=== PATIENT | female | born 2000 | race Caucasian/White ===

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

== ENCOUNTER → 2018-04-13 | Outpatient (REF) | payer OTHER | LOC: M SFHCLERA 12:23 | DX: J02.9 Acute pharyngitis, unspecified (principal) ==

== ENCOUNTER 2018-06-22 10:35 | Emergency (ER) | payer OTHER | END 2018-06-22 11:55 | disposition home or self-care (01) | LOC: M ED 10:35 | DX: S93.401A Sprain of unspecified ligament of right ankle, initial encounter (principal); X50.1XXA Overexertion from prolonged static or awkward postures, initial encounter; Y92.89 Other specified places as the place of occurrence of the external cause | CPT/HCPCS: 73610 ==

== ENCOUNTER → 2018-06-25 | Outpatient (REF) | payer OTHER ==
[2018-06-25 13:40] LABS: APPEARANCE, URINE HAZY (CLEAR); BACTERIA, URINE AUTO 1+ (NEGATIVE); BILIRUBIN, URINE AUTO NEGATIVE (NEGATIVE); BLOOD, URINE BLOOD 2+ (NEGATIVE); COLOR, URINE YELLOW (YELLOW); GLUCOSE, URINE (UA) AUTO NEGATIVE (NEGATIVE); KETONE, URINE AUTO NEGATIVE (NEGATIVE); LEUKOCYTE ESTERASE, URINE AUTO NEGATIVE (NEGATIVE); MUCUS, URINE SMALL (NEGATIVE); NITRITE, URINE AUTO NEGATIVE (NEGATIVE); PROTEIN, URINE AUTO NEGATIVE (NEGATIVE); RBC, URINE AUTO 52 /HPF (0-3); SPECIFIC GRAVITY URINE AUTO 1.021 (1.002-1.035); SQUAMOUS EPITHELIAL CELL UR AU 0 /HPF (0-6); URIC ACID CRYSTALS SMALL; UROBILINOGEN, URINE AUTO 0.2 mg/dL (0.0-2.0); WBC, URINE AUTO 0 /HPF (0-3)
== END ==
LOC: M LAB REF 13:25
DX: N39.0 Urinary tract infection, site not specified (principal)

== ENCOUNTER → 2018-07-03 | Outpatient (REF) | payer OTHER | LOC: M SFHCLERA 10:35 | DX: J02.9 Acute pharyngitis, unspecified (principal) ==

== ENCOUNTER 2018-08-24 16:56 | Emergency (ER) | payer OTHER ==
[2018-08-24] MEDS: OLOPATADINE 0.1% OPHTH SOL 5ML(PATANOL) OD (20:19)
[2018-08-24] MEDS: CLINDAMYCIN 150 MG CAP PO (20:19)
== END 2018-08-24 20:22 | disposition home or self-care (01) ==
LOC: M ED 16:56
DX: H10.11 Acute atopic conjunctivitis, right eye (principal); L03.211 Cellulitis of face; Z79.3 Long term (current) use of hormonal contraceptives
CPT/HCPCS: 99283

== ENCOUNTER → 2019-01-18 | Outpatient (REF) | payer OTHER ==
[~2019-01-18] MED LIST changes: +APAP325T4 PO; +CLEO300C2 PO; +PATA2.5S OD; +PENI500T PO; +SUDA30TA8 PO
== END ==
LOC: M SFHCLERA 20:04
PROVIDERS: ATTEND Physician Assistant
DX: J02.9 Acute pharyngitis, unspecified (principal)

== ENCOUNTER → 2019-01-22 | Outpatient (CLI) | payer OTHER ==
[2019-01-22 12:06] LABS: ALBUMIN 4.2 GM/DL (3.2-5.2); ALT/SGPT 20 U/L (12-78); BILIRUBIN,TOTAL 0.7 MG/DL (0.2-1.0); BLOOD UREA NITROGEN 8 MG/DL (7-18); CALCIUM LEVEL 9.1 MG/DL (8.5-10.1); CARBON DIOXIDE LEVEL 30 MEQ/L (21-32); CHLORIDE LEVEL 103 MEQ/L (98-107); CHOLESTEROL LEVEL 205 MG/DL (<200); CHOLESTEROL RISK RATIO 4.659 (<5); CREATININE FOR GFR 0.62 MG/DL (0.55-1.30); FREE T4 1.25 NG/DL (0.78-1.33); GLUCOSE, FASTING 85 MG/DL (70-100); HDL CHOLESTEROL 44 MG/DL (>40); LDL CHOLESTEROL 137 MG/DL (<100); NON-HDL-C 161 MG/DL; POTASSIUM SERUM 3.9 MEQ/L (3.5-5.1); SODIUM LEVEL 140 MEQ/L (136-145); TOTAL PROTEIN 7.8 GM/DL (6.4-8.2); TRIGLYCERIDES LEVEL 119 MG/DL (<150)
== END ==
LOC: M LAB 10:24
PROVIDERS: ATTEND Physician Assistant
DX: E78.5 Hyperlipidemia, unspecified (principal); R94.6 Abnormal results of thyroid function studies

== ENCOUNTER → 2019-03-16 | Outpatient (REF) | payer OTHER | LOC: M SFHCPLAZ 09:48 | PROVIDERS: ATTEND Nurse Practitioner Family | DX: Z32.00 Encounter for pregnancy test, result unknown (principal); Z3A.00 Weeks of gestation of pregnancy not specified ==

== ENCOUNTER 2019-03-25 16:12 | Emergency (ER) | payer OTHER ==
[~2019-03-25] VITALS: Ht 162.6 cm; Wt 110.6 kg
[2019-03-25] MEDS ORDERED: PRENTAB55 PO (16:51)
[2019-03-25 17:09] LABS: BASO # 0.1 10^3/uL (0.0-0.2); BASO % 0.5 % (0.0-1.0); EOS # 0.2 10^3/uL (0.0-0.50); LYMPH # 2.7 10^3/uL (1.5-6.5); MEAN CORPUSCULAR HEMOGLOBIN 29.9 pg (27.0-33.0); MEAN CORPUSCULAR HGB CONC 33.3 g/dl (32.0-36.5); MEAN CORPUSCULAR VOLUME 89.6 fl (80.0-96.0); MONO # 0.6 10^3/uL (0.0-0.8); MONO % 5.9 % (0.0-5.0); NEUTROPHILS % 63.2 % (36.0-66.0); PLATELET COUNT, AUTOMATED 214 10^3/uL (150-450); RED BLOOD COUNT 4.69 10^6/uL (4.00-5.40); WHITE BLOOD COUNT 9.5 10^3/uL (4.0-10.0)
[2019-03-25 17:50] LABS: BLOOD UREA NITROGEN 7 MG/DL (7-18); CALCIUM LEVEL 8.8 MG/DL (8.5-10.1); CARBON DIOXIDE LEVEL 24 MEQ/L (21-32); CHLORIDE LEVEL 105 MEQ/L (98-107); GLUCOSE, FASTING 81 MG/DL (70-100); HCG, SERUM QUANTITATIVE 24367 MIU/ML; POTASSIUM SERUM 4.1 MEQ/L (3.5-5.1); SODIUM LEVEL 138 MEQ/L (136-145)
--- NOTE | 2019-03-25 20:16 | REPVR ---
EXAM: US , Transvaginal EXAM DATE/TIME: 03/25/2019 6:57 PM CLINICAL HISTORY: 18 years old, female; complicated by abdominal or pelvic pain; Lower; First trimester; Gestational age or lmp: Unknown; ; Additional info: Spotting/cramping TECHNIQUE: Imaging protocol: Real-time transvaginal obstetrical ultrasound of the maternal pelvis and a first trimester with image documentation. Transvaginal imaging was used for better evaluation of the fetus and adnexa. COMPARISON: No relevant prior studies available. FINDINGS: GESTATION: Gestation: Single gestational sac in the uterine fundus. 4 mm yolk sac demonstrated. Single pole measuring 5.1 mm demonstrated. Heart rate: heart rate 120 beats per minute. BIOMETRY: Estimated gestational age: Gestational age based on crown-rump length is 6 weeks 2 days. MATERNAL: Left adnexa: 1.6 x 1.3 x 1.7 cm corpus luteum the left ovary. IMPRESSION: Unremarkable first trimester scan in 6 weeks to days. Detailed structural survey at 19-20 weeks can be performed if clinically desired. Electronically signed by: Valentin Wilkins On 03/25/2019 20:16:48 PM
[2019-03-25 20:34] VITALS: BP 122/70
== END 2019-03-25 20:38 | disposition home or self-care (01) ==
LOC: M ED 16:12
DX: O20.8 Other hemorrhage in early pregnancy (principal); Z3A.01 Less than 8 weeks gestation of pregnancy; Z79.899 Other long term (current) drug therapy

== ENCOUNTER 2019-04-10 11:20 | Emergency (ER) | payer OTHER ==
[~2019-04-10] VITALS: Ht 162.6 cm; Wt 107.0 kg
[~2019-04-10 11:20] MED LIST changes: +PRENTAB55 PO
[2019-04-10 12:03] LABS: BASO # 0.1 10^3/uL (0.0-0.2); BASO % 0.6 % (0.0-1.0); EOS # 0.2 10^3/uL (0.0-0.50); EOS % 2.6 % (0.0-3.0); HEMATOCRIT 41.4 % (36.0-47.0); HEMOGLOBIN 13.9 g/dl (12.0-15.5); LYMPH # 2.1 10^3/uL (1.5-6.5); LYMPH % 27.1 % (24.0-44.0); MEAN CORPUSCULAR HEMOGLOBIN 29.9 pg (27.0-33.0); MEAN CORPUSCULAR HGB CONC 33.6 g/dl (32.0-36.5); MONO # 0.5 10^3/uL (0.0-0.8); MONO % 6.6 % (0.0-5.0); NEUTROPHILS # 4.8 10^3/uL (1.8-7.7); NEUTROPHILS % 62.8 % (36.0-66.0); PLATELET COUNT, AUTOMATED 225 10^3/uL (150-450); RED BLOOD COUNT 4.65 10^6/uL (4.00-5.40); WHITE BLOOD COUNT 7.7 10^3/uL (4.0-10.0)
--- NOTE | 2019-04-10 12:53 | REP ---
First trimester obstetric ultrasound, stat request for vaginal bleeding: Comparison is 03/25/2019. There is an intrauterine gestational sac with a pole. The heart rate is 180 beats per minute. The pole crown-rump length is 2.2 cm. This corresponds to a gestational age of 8 weeks 6 days/MILE 11/14/2019. Gestational age by the first ultrasound is 7 weeks 6 days/MILE 11/21/2019. Gestational age by LMP is 9 weeks 0 days/MILE 11/13/2019. There is no subchorionic hematoma. There are no adnexal masses or cysts. There is no adnexal free fluid. Impression: Viable intrauterine gestation. No subchorionic hematoma. No adnexal mass or free fluid. Electronically Signed by Rupert Shine MD 04/10/2019 12:44 P
[2019-04-10 13:34] VITALS: BP 109/70
== END 2019-04-10 13:35 | disposition home or self-care (01) ==
LOC: M ED 11:20
DX: O20.9 Hemorrhage in early pregnancy, unspecified (principal); Z3A.08 8 weeks gestation of pregnancy

== ENCOUNTER → 2019-05-03 | Outpatient (CLI) | payer OTHER ==
[2019-05-03 10:31] LABS: BASO % 0.4 % (0.0-1.0); EOS # 0.2 10^3/uL (0.0-0.50); EOS % 2.3 % (0.0-3.0); HEMATOCRIT 40.9 % (36.0-47.0); HEMOGLOBIN 13.6 g/dl (12.0-15.5); LYMPH # 2.3 10^3/uL (1.5-6.5); LYMPH % 30.3 % (24.0-44.0); MEAN CORPUSCULAR HEMOGLOBIN 29.2 pg (27.0-33.0); MEAN CORPUSCULAR HGB CONC 33.3 g/dl (32.0-36.5); MONO # 0.5 10^3/uL (0.0-0.8); MONO % 6.8 % (0.0-5.0); NEUTROPHILS # 4.6 10^3/uL (1.8-7.7); NEUTROPHILS % 59.9 % (36.0-66.0); PLATELET COUNT, AUTOMATED 189 10^3/uL (150-450); RED BLOOD COUNT 4.65 10^6/uL (4.00-5.40); WHITE BLOOD COUNT 7.7 10^3/uL (4.0-10.0)
[2019-05-03 12:03] LABS: HEPATITIS C VIRUS ABY INDEX 0.1 INDEX (<0.8); HIV 1&2 SCREEN CENTAUR NEGATIVE (NEGATIVE); RUBELLA IgG QUALITATIVE IMMUNE (IMMUNE)
[2019-05-03 12:30] LABS: CHLAMYDIA DNA AMPLIFICATION NEGATIVE (NEGATIVE); GC DNA AMPLIFICATION NEGATIVE (NEGATIVE)
== END ==
LOC: M LAB 09:11
PROVIDERS: ATTEND Advanced Practice Midwife
DX: Z34.81 Encounter for supervision of other normal pregnancy, first trimester (principal); Z3A.08 8 weeks gestation of pregnancy

== ENCOUNTER → 2019-06-16 | Outpatient (CLI) | payer OTHER ==
--- NOTE | 2019-06-17 09:23 | REP ---
Clinical: Anatomical evaluation. Comparison: 04/10/2019 . Findings: Examination demonstrates a single live intrauterine in variable presentation. motion is identified by technologist. Placenta is noted posterior and grade zero without evidence for placenta previa or abruption. Amniotic fluid volume is normal. Cervix measures 4.7 cm in length and appears closed. No evidence for nuchal cord. Gestational age by LMP 18 weeks 4 days with MILE 11/13/2019 . Gestational age by current measurements 18 weeks 0 days with MILE 11/17/2019 . FHR equals 149 beats per minute. BPD 3.8 cm 17 weeks 4 days HC 14.7 cm 17 weeks 6 days AC 12.6 cm 18 weeks 1 day FL 2.6 cm 17 weeks 6 days HL 2.7 cm 18 weeks 4 days HC/AC ratio 1.17 Estimated weight 220 grams ( 26 percentile). Anatomical assessment demonstrates normal structures including cranium, choroid plexus, cavum, cerebellum/posterior fossa, lungs, diaphragm, stomach, cord insertion/three-vessel cord, bladder, spine, and extremities. Limited evaluation of the facial features, heart/ventricular outflow tracts, and kidneys. Impression: Single live intrauterine in variable presentation demonstrating appropriate interval growth. 2. Anatomical limitations as noted above may warrant reevaluation and follow-up. Electronically Signed by Pedro Leary MD 06/17/2019 09:15 A
== END ==
LOC: M RAD 10:17
PROVIDERS: ATTEND Obstetrics & Gynecology
DX: O99.89 Other specified diseases and conditions complicating pregnancy, childbirth and the puerperium (principal); Z3A.18 18 weeks gestation of pregnancy

== ENCOUNTER → 2019-07-07 | Outpatient (CLI) | payer OTHER ==
[2019-07-07 14:00] LABS: MEAN CORPUSCULAR HEMOGLOBIN 29.2 pg (27.0-33.0); MEAN CORPUSCULAR HGB CONC 32.4 g/dl (32.0-36.5); PLATELET COUNT, AUTOMATED 179 10^3/uL (150-450); RED BLOOD COUNT 4.11 10^6/uL (4.00-5.40); WHITE BLOOD COUNT 11.1 10^3/uL (4.0-10.0)
== END ==
LOC: M LAB 12:06
PROVIDERS: ATTEND Obstetrics & Gynecology
DX: Z34.02 Encounter for supervision of normal first pregnancy, second trimester (principal); Z3A.00 Weeks of gestation of pregnancy not specified

== ENCOUNTER → 2019-07-08 | Outpatient (CLI) | payer OTHER ==
--- NOTE | 2019-07-09 04:03 | REP ---
Clinical: Anatomical evaluation. Comparison: 06/16/2019 . Findings: Examination demonstrates a single live intrauterine in transverse (head to maternal left) presentation. motion is identified by technologist. Placenta is noted posterior and grade zero without evidence for placenta previa or abruption. Amniotic fluid volume is normal. Cervix measures 3.6 cm in length and appears closed. Nuchal cord cannot be excluded. Gestational age by LMP 21 weeks 5 days with MILE is 11/13/2019 . Gestational age by current measurements 20 weeks 5 days with MILE 11/20/2019 . FHR equals 150 beats per minute. Estimated weight 387 grams ( 22nd percentile). Anatomical assessment demonstrates normal structures including cranium, choroid plexus, cavum, nose/lips, lungs, four-chamber heart/ventricular outflow tracts, diaphragm, stomach, cord insertion/three-vessel cord, kidneys/bladder, spine, and extremities. Impression: 1. Single live intrauterine in transverse lie demonstrating appropriate interval growth. 2. In conjunction with prior examination anatomical assessment is complete and normal. 3. Nuchal cord cannot be excluded. Electronically Signed by Pedro Leary MD 07/09/2019 03:55 A
== END ==
LOC: M RAD 10:23
PROVIDERS: ATTEND Obstetrics & Gynecology
DX: Z34.82 Encounter for supervision of other normal pregnancy, second trimester (principal)

== ENCOUNTER 2019-08-15 11:53 | Outpatient (CLI) | payer OTHER ==
[~2019-08-15] VITALS: Ht 162.6 cm; Wt 109.4 kg
[2019-08-15 12:14] VITALS: BP 116/61
[2019-08-15 12:34] VITALS: BP 122/73
== END 2019-08-15 12:49 | disposition home or self-care (01) ==
LOC: M LDO 11:53
PROVIDERS: ATTEND Obstetrics & Gynecology
DX: O26.892 Other specified pregnancy related conditions, second trimester (principal); R10.2 Pelvic and perineal pain; Z3A.26 26 weeks gestation of pregnancy
CPT/HCPCS: G0378; G0463

== ENCOUNTER → 2019-09-29 | Outpatient (CLI) | payer OTHER ==
--- NOTE | 2019-09-29 14:04 | REP ---
OB ULTRASOUND: Real-time sonographic evaluation of the gravid uterus is performed. There is a single living intrauterine gestation. Estimated gestational age 32 weeks 4 days, EDC 11/13/2019. Today's measurements indicate appropriate growth. BPD 79 mm = 31 weeks 5 days, 23rd percentile HC 305 mm = 33 weeks 6 days, 54th percentile AC 290 mm = 33 weeks 0 days, 41st percentile Femur length 62 mm = 32 weeks 1 day, 28th percentile HC/AC ratio 1.05 within normal range. Estimated weight 2038 grams, 29th percentile. Cervix is closed and measures 4.2 cm in length. heart rate 127 beats per minute. Amniotic fluid within normal limits, VARSHA 18.2 within normal range of 8.2-24.7. S/D ratio 3.39 above normal range of 2.0 to 3.0. RI 0.71 within normal range of 0.59-0.75. SEEN/GROSSLY UNREMARKABLE Lateral ventricles Yes Posterior fossa Yes Upper lip Yes Four-chamber heart Yes LVOT Yes RVOT No Stomach Yes Cord insertion Yes Three vessel cord Yes Kidneys Yes Bladder Yes Spine No position: Vertex. Placenta: Posterior and grade 1 with no previa or abruption. Unreviewed
== END ==
LOC: M RAD 12:10
PROVIDERS: ATTEND Advanced Practice Midwife
DX: O26.843 Uterine size-date discrepancy, third trimester (principal)

== ENCOUNTER → 2019-10-22 | Outpatient (REF) | payer OTHER | LOC: M SFHCWAGY 13:47 | PROVIDERS: ATTEND Advanced Practice Midwife | DX: Z34.93 Encounter for supervision of normal pregnancy, unspecified, third trimester (principal) ==

== ENCOUNTER → 2019-10-25 | Outpatient (CLI) | payer OTHER ==
--- NOTE | 2019-10-25 19:20 | REP ---
Clinical: Anatomical evaluation. Comparison: 09/29/2019 . Findings: Examination demonstrates a single live intrauterine in cephalic presentation. motion is identified by technologist. Placenta is noted posterior and grade I I without evidence for placenta previa or abruption. Amniotic fluid volume is normal. Cervix measures 4.8 cm in length and appears closed. Nuchal cord cannot be excluded. Gestational age by LMP 37 weeks 2 days with MILE 11/13/2019 . Gestational age by current measurements 36 weeks 5 days with MILE 11/17/2019 . FHR equals 143 beats per minute. BPD 9.0 cm 36 weeks 2 days HC 33.2 cm 37 weeks 3 days AC 32.3 cm 36 weeks 2 days FL 7.3 cm 37 weeks 2 days HL 6.2 cm 35 weeks 5 days HC/AC ratio 1.03 Estimated weight 2995 grams ( 50th percentile). Amniotic fluid index: 16.8 cm Umbilical cord SD ratio: 2.79 Impression: Single live intrauterine in cephalic presentation demonstrating appropriate interval growth. 2. Nuchal cord cannot be excluded. Electronically Signed by Pedro Leary MD 10/25/2019 07:11 P
== END ==
LOC: M RAD 16:18
PROVIDERS: ATTEND Advanced Practice Midwife
DX: O26.849 Uterine size-date discrepancy, unspecified trimester (principal)

== ENCOUNTER 2019-10-29 20:54 | Outpatient (CLI) | payer OTHER ==
--- NOTE | 2019-10-29 21:33 | IPNPDOC ---
Text Note Date of Service The patient was seen on 10/29/19. NOTE Outpatient 19 yo G1 MILE 11/13/2019. Presents @ 37w6d with complaints of SOB and lung pain upon inspiration. ED sent her for OB clearance before they would see her. NAD VSS Irregular mild UC Cat I tracing SVE LTC, -3, soft Discharged from department to ED. VAL, warnings reviewed. Keep next appt Marixa Hernandez CNM Oct 29, 2019 21:33
== END 2019-10-29 21:40 | disposition home or self-care (01) ==
LOC: M LDO 20:54
PROVIDERS: ATTEND Advanced Practice Midwife
DX: O99.89 Other specified diseases and conditions complicating pregnancy, childbirth and the puerperium (principal); R07.9 Chest pain, unspecified; Z3A.37 37 weeks gestation of pregnancy
CPT/HCPCS: 59025; G0378; G0463

== ENCOUNTER 2019-10-29 21:50 | Emergency (ER) | payer OTHER ==
[~2019-10-29] VITALS: Ht 162.6 cm; Wt 117.2 kg
[2019-10-29 23:03] LABS: ABG BASE EXCESS -4.3 (-2.0-2.0); ABG HCO3 18.8 MEQ/L (22.0-26.0); ABG O2 SATURATION 98.6 % (95.0-99.0); ABG PARTIAL PRESSURE CO2 28.4 mmHg (35.0-45.0); ABG PARTIAL PRESSURE O2 131.6 mmHg (75.0-100.0); ABG TOTAL CO2 19.6 MEQ/L (22.0-29.0); ABG pH (ARTERIAL) 7.438 UNITS (7.350-7.450)
[2019-10-29] MEDS ORDERED: ACETAMINOPHEN 500 MG TAB PO ONE (23:15)
[2019-10-29 23:45] VITALS: BP 122/82
== END 2019-10-29 23:49 | disposition home or self-care (01) ==
LOC: M ED 21:50
DX: O99.89 Other specified diseases and conditions complicating pregnancy, childbirth and the puerperium (principal); R07.89 Other chest pain; Z3A.37 37 weeks gestation of pregnancy

== ENCOUNTER 2019-11-13 07:54 | Inpatient (IN) | payer OTHER ==
[2019-11-13] VITALS (20 sets, daily range): BP systolic 115–141; BP diastolic 66–85
[~2019-11-13] VITALS: Ht 162.6 cm; Wt 117.3 kg
--- NOTE | 2019-11-13 08:56 | HPEPDOC ---
Obstetrical History & Physical General Date of Admission Nov 13, 2019 at 07:54 History of Present Illness Presenting for IOL Chief Complaint: Induction of labor Information Provided By: Patient Age: 19 : 1 Term: 0 Pre-term: 0 Abortions: 0 Livin Care Care: Good Care Dating Final EDC: Nov 13, 2019 Final EDC by: LMP, 1st trimester (US) LMP: Feb 06, 2019 Weeks + Days: 40.0 Estimated Date of Confinement: Nov 13, 2019 EGA at Admission: 40.0 Antepartum Course Pre- weight (lbs.): 246 Past Medical History Past Medical History Medical History none Surgical History: Denies/None Family History Family History Brother- Autism Social History Marital Status: Family situation: Spouse/partner home * Smoker: non-smoker Alcohol: Denies Drugs: denies Abuse Violence Screening Have you been hit/kicked/slapp: No Have you been sexually assault: No Imunizations Tdap status: current Allergies Coded Allergies: latex (Verified Allergy, Mild, RASH , 11/13/19) Physical Examination Physical Examination GENERAL: Alert and oriented times three. BREAST: . ABDOMEN: Gravid and non-tender to touch. FETUS: Is vertex (VTX) by sterile vaginal examination (SVE), fetus is vertex (VTX) by Jhonny. HEART RATE: Regular rate and rhythm. LUNGS: Clear to auscultation (CTA). EXTREMITIES: No edema. No clonus. Deep tendon reflexes (DTRs) + . Vital Signs/I&O BP 121/77, P 103 Laboratory Data 24H LABS Laboratory Tests 2 11/13/19 08:05: Serology Scanned Report Hepatitis B Testing Urine Culture: No Growth Pertinent Laboratoy Data Blood Type: B+ RBC Antibody Screen: Negative HIV: Negative Hepatitis B: Negative Hepatitis C: Negative Rapid Plasma Reagin: Nonreactive Rubella: Immune Chlamydia/Gonorrhea: Negative Group B Streptococcus: Negative Anatomy Ultrasound Ultrasound Date: Oct 25, 2019 Placenta Location: Posterior Normal Anatomy: Yes Placenta Previa: No Estimated Weight (grams): 2995 Vaginal Examination Dilation: 1cm Effacement: 50% Station: -2 Cervical Consistency: Soft Cervical Position: Posterior Presentation: Cephalic presentation Position: Vertex (occiput) Assessment Heart Rate (FHR): 140 Variability: Moderate Accelerations: Positive Decelerations: None Tocometer Contractions: Yes Frequency: regular, other (every 8-9 minutes) Duration: less than 60 seconds Assessment/Plan Assessment Elizabeth is a 19-year-old (G)1 para (P)0-0-0-0 at 40+0 weeks by first trimester ultrasound. Presents to Labor and Delivery (L&D) for IOL. Plan Admit and orient. 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 Diet: regular. Group B Streptococcus (GBS) negative. Labs and intravenous (IV) per unit protocol. Counseled on Pitocin and induction of labor (IOL). Will start with misoprostol Anticipate normal spontaneous delivery (). C-S as appropriate. GME ATTESTATION GME ATTESTATION My faculty preceptor for this patient encounter was physically present during the encounter and was fully available. All aspects of the patient interview, examination, medical decision making process, and medical care plan development were reviewed and approved by the faculty preceptor. The faculty preceptor is aware and concurs with the plan as stated in the body of this note and will attest to such by his/her cosignature. ADRIAN SQUIRES D.O. Nov 13, 2019 08:55
[2019-11-13] MEDS: miSOPROStol 50 MCG 1/2 TAB (S0191) SL SCH ×3 (09:00→17:30)
[2019-11-13 09:27] LABS: HEMATOCRIT 37.8 % (36.0-47.0); HEMOGLOBIN 12.1 g/dl (12.0-15.5); MEAN CORPUSCULAR HEMOGLOBIN 28.1 pg (27.0-33.0); MEAN CORPUSCULAR VOLUME 87.9 fl (80.0-96.0); PLATELET COUNT, AUTOMATED 164 10^3/uL (150-450); WHITE BLOOD COUNT 12.3 10^3/uL (4.0-10.0)
--- NOTE | 2019-11-13 21:56 | IPNPDOC ---
Text Note Date of Service The patient was seen on 11/13/19. NOTE S: Feeling more pressure in her back, starting to feel pressure in her abdomen. O: SVE: 60/-2 FHR: 140 bpm, mod hallie, accels no decels, cat I tracing [place]: CTX irregular A: 19 yo presenting for induction of labor. S/P 3 doses of misoprostol. P: Group B Streptococcus (GBS) negative. Labs and intravenous (IV) per unit protocol. Augment with pitocin, s/p 3 doses misoprostol Anticipate normal spontaneous delivery (). C-S as appropriate. VS,Fishbone, I+O VS, Fishbone, I+O Laboratory Tests 11/13/19 08:52 Vital Signs Date Time Temp Pulse Resp B/P (MAP) Pulse Ox O2 Delivery O2 Flow Rate FiO2 11/13/19 18:32 96.9 93 18 133/79 (97) GME ATTESTATION GME ATTESTATION My faculty preceptor for this patient encounter was physically present during the encounter and was fully available. All aspects of the patient interview, examination, medical decision making process, and medical care plan development were reviewed and approved by the faculty preceptor. The faculty preceptor is aware and concurs with the plan as stated in the body of this note and will attest to such by his/her cosignature. ADRIAN SQUIRES D.O. Nov 13, 2019 21:56
[2019-11-13] MEDS ORDERED: BUTORPHANOL 2 MG/ML INJ (J0595) IV ONE (22:00)
[2019-11-13] MEDS ORDERED: OXYTOCIN DRIP 30 UNITS in IV 1 EA IV SCH (22:00)
[2019-11-13] MEDS ORDERED: PROMETHAZINE INJ 25 MG/ML VIAL (J2550) IM ONE (22:00)
[2019-11-14] VITALS (52 sets, daily range): BP systolic 92–183; BP diastolic 53–90
[2019-11-14] MEDS ORDERED: PROMETHAZINE INJ 25 MG/ML VIAL (J2550) IV ONE (03:30)
[2019-11-14] MEDS ORDERED: LR 1,000 ML IV SCH ×2 (08:18→21:30)
[2019-11-14] MEDS ORDERED: FENTANYL 2MCG/ML ROPIVACAINE 0.2% IN 0.9% NACL 100ML IVBAG As Ordered ONE (09:36)
[2019-11-14] MEDS ORDERED: ePHEDrine SULFATE 25 MG/5 ML(5MG/ML) SYRINGE As Ordered ONE (10:21)
[2019-11-14] MEDS ORDERED: NALOXONE INJ 0.4 MG/1 ML VIAL (J2310) IV PRN ×3 (10:30→20:20)
[2019-11-14] MEDS ORDERED: ePHEDrine SULFATE 25 MG/5 ML(5MG/ML) SYRINGE IV PRN (10:30)
[2019-11-14] MEDS: FENTANYL/ROPIVACAINE/NACL BAG 100 ML EPIDURAL SCH ×2 (10:30→18:38)
[2019-11-14] MEDS ORDERED: EPIDURAL COMMENT XX SCH (10:30)
[2019-11-14] MEDS ORDERED: EPIDURAL/PCA KEYS XX PRN (10:30)
[2019-11-14] MEDS ORDERED: REFRIGERATOR IV KEYS XX PRN (10:30)
[2019-11-14] MEDS ORDERED: ONDANSETRON 4MG/2ML VIAL (J2405) IV PRN ×4 (10:30→21:30)
[2019-11-14] MEDS ORDERED: diphenhydrAMINE INJ 50MG/ML VIAL (J1200) IV PRN ×2 (10:30→20:20)
[2019-11-14] MEDS ORDERED: LACTATED RINGER'S 1000 ML IV PRN (10:30)
[2019-11-14] MEDS ORDERED: TERBUTALINE SULFATE 1 MG/ML VIAL (J3105) As Ordered ONE (12:32)
[2019-11-14] MEDS ORDERED: ceFAZolin SOD 2 GM in IV 1 EA IV ONE (19:45)
[2019-11-14] MEDS ORDERED: BICITRA 30ML SOLN UDC PO ONE (19:45)
[2019-11-14] MEDS ORDERED: BICITRA 30ML SOLN UDC As Ordered ONE (19:50)
[2019-11-14] MEDS ORDERED: ceFAZolin 2 GM/D5W 50 ML IV BAG (J0690 PER 500MG) As Ordered ONE (19:51)
[2019-11-14] MEDS ORDERED: NALBUPHINE HCL 10 MG/ML AMP (J2300) IV PRN (20:20)
[2019-11-14] MEDS ORDERED: METOCLOPRAMIDE INJ 10MG/2ML VIAL (J2765) IV PRN (20:20)
[2019-11-14] MEDS ORDERED: fentaNYL 100 MCG/2 ML INJECTION (J3010) As Ordered ONE (20:28)
[2019-11-14] MEDS ORDERED: dexameTHASONE 4 MG/ML 1ML VIAL (J1100) As Ordered ONE (20:28)
[2019-11-14] MEDS ORDERED: LIDOCAINE 2% W/EPIN INJ 20ML **PRES FREE As Ordered ONE (20:28)
[2019-11-14] MEDS ORDERED: OXYTOCIN INJ 10 UNITS/ML VIAL (J2590) As Ordered ONE ×2 (20:29→21:04)
[2019-11-14] MEDS ORDERED: ONDANSETRON 4MG/2ML VIAL (J2405) As Ordered ONE (20:29)
[2019-11-14] MEDS ORDERED: SODIUM BICARBONATE 8.4% INJ 50MEQ 50 ML VIAL As Ordered ONE (20:29)
[2019-11-14] MEDS ORDERED: MORPHINE PRES-FREE INJ 10 MG/10 ML VIAL (J2274) As Ordered ONE (20:29)
[2019-11-14] MEDS ORDERED: OXYTOCIN 30 UNITS IN 0.9% NaCl 500ML IV BAG (J2590) As Ordered ONE ×2 (20:29→21:55)
[2019-11-14] MEDS ORDERED: METOCLOPRAMIDE INJ 10MG/2ML VIAL (J2765) As Ordered ONE (20:29)
[2019-11-14] MEDS ORDERED: OXYTOCIN DRIP 30 UNITS in IV 1 EA IV SCH (21:09)
[2019-11-14] MEDS ORDERED: DOCUSATE SODIUM 100 MG CAP PO PRN (21:15)
[2019-11-14] MEDS ORDERED: MEASLES,MUMPS,RUBELLA VACCINE INJ (MMR-II) (90707) SC SCH (21:15)
[2019-11-14] MEDS ORDERED: RHOGAM 300 MCG (1500 IU) INJ (J2790) IM SCH (21:15)
[2019-11-14] MEDS ORDERED: PERCOCET 5MG/325MG TAB PO PRN ×3 (21:15→21:30)
[2019-11-14] MEDS ORDERED: fentaNYL 100 MCG/2 ML INJECTION (J3010) IV PRN (21:30)
[2019-11-14] MEDS: LR 1,000 ML IV SCH (22:50)
[2019-11-15] VITALS (8 sets, daily range): BP systolic 101–131; BP diastolic 56–78
[2019-11-15] MEDS: KETOROLAC 30 MG/ML VIAL (J1885) IV SCH ×3 (03:14→15:33)
[2019-11-15] MEDS: LR 1,000 ML IV SCH (06:02)
[2019-11-15] MEDS ORDERED: OXYC1TAB23 PO (06:47)
[2019-11-15] MEDS ORDERED: IBUP80TA PO (06:48)
[2019-11-15 06:52] LABS: MEAN CORPUSCULAR HEMOGLOBIN 28.5 pg (27.0-33.0); MEAN CORPUSCULAR HGB CONC 32.3 g/dl (32.0-36.5); MEAN CORPUSCULAR VOLUME 88.2 fl (80.0-96.0); PLATELET COUNT, AUTOMATED 172 10^3/uL (150-450); WHITE BLOOD COUNT 16.2 10^3/uL (4.0-10.0)
[2019-11-15 06:55] LABS: HEMOGLOBIN 9.7 g/dl (12.0-15.5)
[2019-11-15] MEDS: PRENATAL VITAMINS CHEWABLE TABLET PO SCH (09:01)
[2019-11-15] MEDS ORDERED: propofoL 200 MG/20 ML VIAL As Ordered ONE (11:39)
[2019-11-15] MEDS ORDERED: LIDOCAINE 2% INJ 100 MG/5 ML SDV (FOR ANES.) As Ordered ONE (11:39)
[2019-11-15] MEDS: IBUPROFEN 800 MG TAB PO SCH (22:32)
[2019-11-16 05:26] VITALS: BP 126/80
[2019-11-16] MEDS: IBUPROFEN 800 MG TAB PO SCH (06:24)
--- NOTE | 2019-11-16 07:31 | IPNPDOC ---
Progress Note Date of Service: Nov 16, 2019 Day#: 2 Progress Note SUBJECT: She has been ambulating, voiding spontaneously without issue and tole rating regular diet. Patient reports some cramping, improved with medication. Patient is attempting breast feeding, but reports low output and is supplementing with formula. OBJECTIVE: VITAL SIGNS: Within normal limits, afebrile. Alert and oriented times three. Breath sounds clear to auscultation. Heart rate: Regular rate and rhythm, no murmurs, rubs or gallops. Abdomen: Fundus firm at U-1. Incision dressing clean, dry and intact. Minimal lochia. IV saline lock. ASSESSMENT: day two post-op PLAN: 1. Discharge to home tomorrow. 2. Tylenol and Motrin for pain. 3. Encourage breast feeding and ambulation. 4. Continue routine care. VS, I&O, 24H, Fishbone Vital Signs/I&O Vital Signs Date Time Temp Pulse Resp B/P (MAP) Pulse Ox O2 Delivery O2 Flow Rate FiO2 11/16/19 05:26 98.4 102 16 126/80 (95) 97 Room Air 11/14/19 23:31 97.0 I&O- Last 24 Hours up to 6 AM 11/16/19 06:00 Output Total 1200 ml Balance -1200 ml TROY PAIGE CNM Nov 16, 2019 07:31
[2019-11-16] MEDS: PRENATAL VITAMINS CHEWABLE TABLET PO SCH (08:09)
--- NOTE | 2019-11-16 08:53 | RO ---
DATE OF OPERATION: 11/14/2019 PREOPERATIVE DIAGNOSIS: 40 weeks' gestation, arrest of dilation. POSTOPERATIVE DIAGNOSIS: 40 weeks' gestation, arrest of dilation. PROCEDURE: Primary low transverse section. SURGEON: Aubrey Spencer MD GAME DEVELOPER: ANESTHESIA: Epidural. ESTIMATED BLOOD LOSS: 600 mL. URINE OUTPUT: 100 mL. FINDINGS: 3490-gram or 7-pound 11-ounce female , scores 7 and 9, occiput posterior position. Normal uterus, fallopian tubes, and ovaries. DESCRIPTION OF PROCEDURE: Operative summary: The patient taken the operating room, where epidural anesthesia was adequate. A Ortega catheter was already in place. A Pfannenstiel skin incision was made with the scalpel and carried through to the fascia. The fascia was nicked and extended. The fascia was dissected off the rectus muscles. The peritoneal cavity was entered. A Mobius retractor was placed. A bladder flap was created. A curvilinear incision was made in the lower uterine segment until clear fluid was noted. This was extended manually. The was delivered in the vertex position without difficulty. The cord was doubly clamped and cut. The infant was handed off to the awaiting nurses. The placenta was expressed. The uterine incision was closed with 0 Vicryl in a running locked fashion. A second imbricating layer of 0 Vicryl was placed. The Mobius retractor was removed. The peritoneum was closed with 2-0 Vicryl in a running fashion. The fascia was closed with 0 Vicryl in a running fashion. The deep layer was irrigated and closed with 2-0 chromic. The skin was closed with 4-0 Monocryl subcuticular sutures. Sponge, instrument, and needle counts were correct.
== END 2019-11-16 12:05 | disposition home or self-care (01) | DRG 773 ==
LOC: M LDI 07:54 → M OBS 11-14 22:25
PROVIDERS: ADMIT Specialist; ATTEND Specialist
PROC: 3E0P7GC Introduction of Other Therapeutic Substance into Female Reproductive, Via Natural or Artificial Opening (ICD-10-PCS; 2019-11-13)
PROC: 10D00Z1 Extraction of Products of Conception, Low, Open Approach (ICD-10-PCS; principal; 2019-11-14 20:00)
DX: O62.0 Primary inadequate contractions (principal); Z3A.40 40 weeks gestation of pregnancy; Z37.0 Single live birth

== ENCOUNTER 2020-01-04 12:57 | Emergency (ER) | payer OTHER ==
[~2020-01-04] VITALS: Ht 162.6 cm; Wt 107.6 kg
[~2020-01-04 12:57] MED LIST changes: +IBUP80TA PO; +OXYC1TAB23 PO
[2020-01-04] MEDS ORDERED: PEPTO BISMOL OR (13:05)
[2020-01-04] MEDS ORDERED: NS 1,000 ML IV ONE (13:30)
[2020-01-04 13:53] LABS: BASO % 0.2 % (0.0-1.0); EOS # 0.2 10^3/uL (0.0-0.5); EOS % 2.3 % (0.0-3.0); HEMATOCRIT 42.1 % (36.0-47.0); HEMOGLOBIN 13.2 g/dl (12.0-15.5); LYMPH # 0.9 10^3/uL (1.5-5.0); LYMPH % 9.3 % (24.0-44.0); MEAN CORPUSCULAR HEMOGLOBIN 26.8 pg (27.0-33.0); MEAN CORPUSCULAR HGB CONC 31.4 g/dl (32.0-36.5); MEAN CORPUSCULAR VOLUME 85.4 fl (80.0-96.0); MONO # 0.5 10^3/uL (0.0-0.8); MONO % 5.5 % (0.0-5.0); NEUTROPHILS # 7.7 10^3/uL (1.5-8.5); NEUTROPHILS % 82.5 % (36.0-66.0); PLATELET COUNT, AUTOMATED 268 10^3/uL (150-450); RED BLOOD COUNT 4.93 10^6/uL (4.00-5.40); WHITE BLOOD COUNT 9.3 10^3/uL (4.0-10.0)
[2020-01-04] MEDS ORDERED: ONDANSETRON 4MG/2ML VIAL (J2405) IV ONE (14:00)
[2020-01-04 14:18] LABS: ALBUMIN 3.4 GM/DL (3.2-5.2); BILIRUBIN,DIRECT 0.1 MG/DL (0.0-0.2); BILIRUBIN,TOTAL 0.5 MG/DL (0.2-1.0); TOTAL PROTEIN 7.3 GM/DL (6.4-8.2)
[2020-01-04] MEDS ORDERED: ZOFR8TAB24 PO (14:48)
[2020-01-04 15:07] VITALS: BP 110/71
== END 2020-01-04 15:10 | disposition home or self-care (01) ==
LOC: M ED 12:57
DX: R11.2 Nausea with vomiting, unspecified (principal); R19.7 Diarrhea, unspecified; R10.9 Unspecified abdominal pain
CPT/HCPCS: 80047; 80076; 83690; 85025; 96361; 96374; 99284; J2405

== ENCOUNTER 2020-03-26 14:52 | Emergency (ER) | payer OTHER ==
[~2020-03-26] VITALS: Ht 162.6 cm; Wt 115.7 kg
[~2020-03-26 14:52] MED LIST changes: +PEPTO BISMOL OR; +ZOFR8TAB24 PO
[2020-03-26] MEDS ORDERED: prenatal PO (15:14)
[2020-03-26 15:35] LABS: BASO # 0.1 10^3/uL (0.0-0.2); BASO % 0.5 % (0.0-1.0); EOS # 0.3 10^3/uL (0.0-0.5); EOS % 2.9 % (0.0-3.0); HEMATOCRIT 40.2 % (36.0-47.0); HEMOGLOBIN 12.9 g/dl (12.0-15.5); LYMPH # 2.2 10^3/uL (1.5-5.0); LYMPH % 24.3 % (24.0-44.0); MEAN CORPUSCULAR HEMOGLOBIN 26.6 pg (27.0-33.0); MEAN CORPUSCULAR HGB CONC 32.1 g/dl (32.0-36.5); MEAN CORPUSCULAR VOLUME 82.9 fl (80.0-96.0); MONO # 0.5 10^3/uL (0.0-0.8); MONO % 5.6 % (0.0-5.0); NEUTROPHILS # 6.1 10^3/uL (1.5-8.5); NEUTROPHILS % 66.5 % (36.0-66.0); PLATELET COUNT, AUTOMATED 253 10^3/uL (150-450); RED BLOOD COUNT 4.85 10^6/uL (4.00-5.40); WHITE BLOOD COUNT 9.2 10^3/uL (4.0-10.0)
[2020-03-26 15:38] LABS: APPEARANCE, URINE HAZY (CLEAR); BACTERIA, URINE AUTO NEGATIVE (NEGATIVE); BILIRUBIN, URINE AUTO NEGATIVE (NEGATIVE); BLOOD, URINE BLOOD 3+ (NEGATIVE); COLOR, URINE YELLOW (YELLOW); GLUCOSE, URINE (UA) AUTO NEGATIVE (NEGATIVE); KETONE, URINE AUTO NEGATIVE (NEGATIVE); LEUKOCYTE ESTERASE, URINE AUTO NEGATIVE (NEGATIVE); MUCUS, URINE SMALL (NEGATIVE); NITRITE, URINE AUTO NEGATIVE (NEGATIVE); PROTEIN, URINE AUTO NEGATIVE (NEGATIVE); RBC, URINE AUTO 48 /HPF (0-3); SPECIFIC GRAVITY URINE AUTO 1.027 (1.002-1.035); SQUAMOUS EPITHELIAL CELL UR AU 3 /HPF (0-6); UROBILINOGEN, URINE AUTO 0.2 mg/dL (0.0-2.0); WBC, URINE AUTO 1 /HPF (0-3)
[2020-03-26 15:58] LABS: BLOOD UREA NITROGEN 11 MG/DL (7-18); CALCIUM LEVEL 7.9 MG/DL (8.5-10.1); CARBON DIOXIDE LEVEL 26 MEQ/L (21-32); CHLORIDE LEVEL 107 MEQ/L (98-107); GLOMERULAR FILTRATION RATE > 60.0 (>60); GLUCOSE, FASTING 89 MG/DL (70-100); HCG, SERUM QUANTITATIVE 84 MIU/ML; POTASSIUM SERUM 3.7 MEQ/L (3.5-5.1); SODIUM LEVEL 141 MEQ/L (136-145)
--- NOTE | 2020-03-26 17:05 | REP ---
Clinical: Vaginal bleeding. Technique: Transabdominal pelvic ultrasound followed by transvaginal examination for better evaluation of the endometrium, adnexa and early with color Doppler evaluation. Findings: Bladder is under distended. Anteverted uterus measures 8.3 x 4.1 x 3.8 cm. Endometrial complex measures 8 mm thickness. No discrete intrauterine is identified. Left ovary is not visualized. Right ovary is normal in appearance and vascularity without torsion measuring 2.3 x 1.7 x 2.7 cm (RI 0.51). Impression: 1. No intrauterine identified. Correlation with serial HCG levels recommended. Differential diagnosis includes spontaneous , early and less likely ectopic cannot be excluded. 2. Normal right ovary. Left ovary not visualized. Electronically Signed by Pedro Leary MD 03/26/2020 04:56 P
[2020-03-26 17:19] VITALS: BP 137/86
== END 2020-03-26 17:25 | disposition home or self-care (01) ==
LOC: M ED 14:52
DX: O20.0 Threatened abortion (principal); Z3A.00 Weeks of gestation of pregnancy not specified

== ENCOUNTER → 2020-03-28 | Outpatient (CLI) | payer OTHER ==
[~2020-03-28] MED LIST changes: +prenatal PO
== END ==
LOC: M LAB 12:35
PROVIDERS: ATTEND Specialist
DX: O20.0 Threatened abortion (principal)

== ENCOUNTER → 2021-08-08 | Outpatient (CLI) | payer OTHER | LOC: M WHC 10:51 | PROVIDERS: ATTEND Obstetrics & Gynecology | DX: Z34.83 Encounter for supervision of other normal pregnancy, third trimester (principal); Z3A.31 31 weeks gestation of pregnancy ==

== ENCOUNTER → 2021-08-30 | Outpatient (REF) | payer OTHER | LOC: M SFHCWAGY 13:08 | PROVIDERS: ATTEND Advanced Practice Midwife | DX: O34.211 Maternal care for low transverse scar from previous cesarean delivery (principal) ==

== ENCOUNTER → 2021-08-30 | Outpatient (CLI) | payer OTHER ==
[2021-08-30 14:33] LABS: BASO % 0.4 % (0.0-1.0); EOS # 0.1 10^3/uL (0.0-0.5); EOS % 0.9 % (0.0-3.0); HEMATOCRIT 38.8 % (36.0-47.0); HEMOGLOBIN 12.7 g/dl (12.0-15.5); LYMPH # 1.8 10^3/uL (1.5-5.0); LYMPH % 18.3 % (24.0-44.0); MEAN CORPUSCULAR HEMOGLOBIN 29.5 pg (27.0-33.0); MEAN CORPUSCULAR HGB CONC 32.7 g/dl (32.0-36.5); MONO # 0.6 10^3/uL (0.0-0.8); NEUTROPHILS # 7.4 10^3/uL (1.5-8.5); NEUTROPHILS % 74.1 % (36.0-66.0); PLATELET COUNT, AUTOMATED 190 10^3/uL (150-450); RED BLOOD COUNT 4.31 10^6/uL (4.00-5.40)
[2021-08-30 16:43] LABS: GC DNA AMPLIFICATION NEGATIVE (NEGATIVE)
[2021-08-30 17:36] LABS: HEPATITIS C VIRUS ABY INDEX 0.1 INDEX (<0.8); HIV 1&2 SCREEN CENTAUR NEGATIVE (NEGATIVE)
== END ==
LOC: M PLALAB 09:56
PROVIDERS: ATTEND Obstetrics & Gynecology
DX: O34.211 Maternal care for low transverse scar from previous cesarean delivery (principal)

== ENCOUNTER → 2021-09-28 | Outpatient (CLI) | payer OTHER ==
--- NOTE | 2021-09-30 17:33 | REP ---
INDICATION: POLYHYDRAMNIOS, THIRD TRIMESTER, NOT APPLICABLE OR UNSP COMPARISON: 08/08/2021 TECHNIQUE: Transabdominal obstetrical ultrasound with color Doppler evaluation. FINDINGS: Examination demonstrates a single live intrauterine in cephalic presentation. motion is identified by technologist. Placenta is noted posteriorly and grade 3 without evidence for placenta previa or abruption. Amniotic fluid volume is elevated and consistent with polyhydramnios. Cervix measures 4.8 cm in length and appears closed. VARSHA: 25.1 cm Biophysical profile score: 8/8. Selected gestational age: 39 weeks 5 days with MILE 09/28/2021. FHR equals 142 beats per minute. IMPRESSION: 1. Polyhydramnios. 2. Biophysical profile score: 8/8 <Electronically signed by Pedro Leary > 09/30/21 [id number]
== END ==
LOC: M WHC 12:55
PROVIDERS: ATTEND Obstetrics & Gynecology
DX: O34.211 Maternal care for low transverse scar from previous cesarean delivery (principal); O99.213 Obesity complicating pregnancy, third trimester; O40.3XX0 Polyhydramnios, third trimester, not applicable or unspecified; Z3A.39 39 weeks gestation of pregnancy

== ENCOUNTER 2021-10-03 07:35 | Inpatient (IN) | payer OTHER ==
[~2021-10-03] VITALS: Ht 162.6 cm; Wt 120.8 kg
[2021-10-03] VITALS (56 sets, daily range): BP systolic 86–193; BP diastolic 47–99
[2021-10-03] MEDS ORDERED: CARBOPROST TROMETHAMINE 250 MCG/ML AMP IM PRN (08:25)
[2021-10-03] MEDS ORDERED: TRANEXAMIC ACID INJection 1,000 MG in NS 100 ML IV PRN (08:25)
[2021-10-03] MEDS ORDERED: LIDOCAINE 1% MDV 20ML VIAL INFIL PRN (08:25)
[2021-10-03] MEDS ORDERED: OXYTOCIN DRIP 30 UNITS in IV 1 EA IV SCH ×2 (08:25→22:30)
[2021-10-03] MEDS ORDERED: OXYTOCIN INJ 10 UNITS/ML VIAL (J2590) IM PRN (08:25)
[2021-10-03] MEDS ORDERED: OXYTOCIN DRIP 30 UNITS in IV 1 EA IV PRN ×4 (08:25)
[2021-10-03] MEDS ORDERED: METHYLERGONOVINE MALEATE 0.2 MG/ML VIAL (J2210) IM PRN (08:25)
[2021-10-03 08:52] LABS: HEMATOCRIT 38.7 % (36.0-47.0); HEMOGLOBIN 12.8 g/dl (12.0-15.5); MEAN CORPUSCULAR HGB CONC 33.1 g/dl (32.0-36.5); MEAN CORPUSCULAR VOLUME 87.6 fl (80.0-96.0); PLATELET COUNT, AUTOMATED 190 10^3/uL (150-450); RED BLOOD COUNT 4.42 10^6/uL (4.00-5.40); WHITE BLOOD COUNT 10.7 10^3/uL (4.0-10.0)
[2021-10-03] MEDS: LR 1,000 ML IV SCH ×4 (09:05→20:14)
[2021-10-03] MEDS ORDERED: FENTANYL 2MCG/ML ROPIVACAINE 0.2% IN 0.9% NACL 100ML IVBAG As Ordered ONE (16:48)
[2021-10-03] MEDS ORDERED: ePHEDrine SULFATE 25 MG/5 ML(5MG/ML) SYRINGE As Ordered ONE (19:16)
[2021-10-03] MEDS ORDERED: REFRIGERATOR IV KEYS XX PRN (19:25)
[2021-10-03] MEDS ORDERED: FENTANYL/ROPIVACAINE/NACL BAG 100 ML EPIDURAL SCH (19:25)
[2021-10-03] MEDS ORDERED: diphenhydrAMINE 50MG/ML VIAL (J1200) IV PRN ×2 (19:25→22:15)
[2021-10-03] MEDS ORDERED: LACTATED RINGER'S 1000 ML IV PRN (19:25)
[2021-10-03] MEDS ORDERED: EPIDURAL COMMENT XX SCH (19:25)
[2021-10-03] MEDS ORDERED: EPIDURAL/PCA KEYS XX PRN (19:25)
[2021-10-03] MEDS ORDERED: NALOXONE INJ 0.4MG/1ML VIAL (J2310 PER 1MG) IV PRN ×3 (19:25→22:15)
[2021-10-03] MEDS ORDERED: ONDANSETRON 4MG/2ML VIAL IV PRN ×3 (19:25→23:00)
[2021-10-03] MEDS: ePHEDrine SULFATE 25 MG/5 ML(5MG/ML) SYRINGE IV PRN ×3 (19:26→19:34)
[2021-10-03] MEDS ORDERED: BICITRA 30ML SOLN UDC PO ONE (21:25)
[2021-10-03] MEDS ORDERED: AZITHROMYCIN INJ 500 MG, VIAL MATE ADAPTER 1 EACH in NS 250 ML IV ONE (21:25)
[2021-10-03] MEDS ORDERED: ceFAZolin SOD 2 GM in IV 1 EA IV ONE (21:25)
[2021-10-03] MEDS ORDERED: METOCLOPRAMIDE INJ 10MG/2ML VIAL (J2765 PER 1) IV PRN (22:15)
[2021-10-03] MEDS ORDERED: NALBUPHINE HCL 10 MG/ML AMP (J2300) IV PRN ×2 (22:15→23:00)
[2021-10-03] MEDS ORDERED: PERCOCET 5MG/325MG TAB PO PRN (22:30)
[2021-10-03] MEDS ORDERED: METHYLERGONOVINE MALEATE 0.2 MG TAB PO PRN (22:30)
[2021-10-03] MEDS ORDERED: SIMETHICONE 80MG CHEW TAB PO PRN (22:30)
[2021-10-03] MEDS ORDERED: MEASLES,MUMPS,RUBELLA VACCINE INJ (MMR-II) (90707) SC SCH (22:30)
[2021-10-03] MEDS ORDERED: RHOGAM 300 MCG (1500 IU) INJ (J2790) IM SCH (22:30)
[2021-10-03] MEDS ORDERED: MOM 30ML SUSPENSION UDC PO PRN (22:30)
[2021-10-03] MEDS ORDERED: fentaNYL 100 MCG/2 ML INJECTION As Ordered ONE (22:32)
[2021-10-03] MEDS ORDERED: ACETAMINOPHEN 1000MG 100ML IV BTL (OFIRMEV) (J0131 PER 10MG) As Ordered ONE (22:32)
[2021-10-03] MEDS ORDERED: dexameTHASONE 4 MG/ML 1ML VIAL (J1100 PER 1MG) As Ordered ONE (22:32)
[2021-10-03] MEDS ORDERED: KETAMINE HCL 200 MG/20 ML VIAL As Ordered ONE (22:32)
[2021-10-03] MEDS ORDERED: MORPHINE PRES-FREE INJ 10 MG/10 ML VIAL (J2274) As Ordered ONE (22:32)
[2021-10-03] MEDS ORDERED: KETOROLAC 60MG 2ML VIAL As Ordered ONE (22:32)
[2021-10-03] MEDS ORDERED: LIDOCAINE 2% W/EPINEPHRINE 20ML VIAL **PRES FREE As Ordered ONE (22:32)
[2021-10-03] MEDS ORDERED: SODIUM BICARBONATE 8.4% INJ 50MEQ 50 ML VIAL As Ordered ONE (22:32)
[2021-10-03] MEDS ORDERED: MIDAZOLAM INJ 2MG/2ML VIAL (J2250 PER 1MG) As Ordered ONE (22:32)
[2021-10-03] MEDS ORDERED: ONDANSETRON 4MG/2ML VIAL As Ordered ONE (22:32)
[2021-10-03] MEDS ORDERED: OXYTOCIN 30 UNITS IN 0.9% NaCl 500ML IV BAG (J2590) As Ordered ONE ×2 (22:32→23:01)
[2021-10-03] MEDS ORDERED: oxyCODONE 5MG TAB PO PRN (23:00)
[2021-10-03] MEDS ORDERED: MEPERIDINE INJ 25 MG/ML VIAL (J2175) IV PRN (23:00)
[2021-10-03] MEDS ORDERED: fentaNYL 100 MCG/2 ML INJECTION IV PRN (23:00)
[2021-10-03] MEDS ORDERED: HYDROMORPHONE HCL 0.5 MG/ 0.5 ML SYRINGE (J1170 PER 1) IV PRN (23:00)
[2021-10-04] VITALS (9 sets, daily range): BP systolic 105–137; BP diastolic 61–78
[2021-10-04] MEDS: KETOROLAC 30 MG/ML 1ML VIAL IV SCH ×3 (04:22→16:27)
[2021-10-04 08:54] LABS: HEMATOCRIT 26.3 % (36.0-47.0); HEMOGLOBIN 8.6 g/dl (12.0-15.5); MEAN CORPUSCULAR HEMOGLOBIN 29.2 pg (27.0-33.0); MEAN CORPUSCULAR HGB CONC 32.7 g/dl (32.0-36.5); MEAN CORPUSCULAR VOLUME 89.2 fl (80.0-96.0); PLATELET COUNT, AUTOMATED 171 10^3/uL (150-450); RED BLOOD COUNT 2.95 10^6/uL (4.00-5.40); WHITE BLOOD COUNT 12.5 10^3/uL (4.0-10.0)
[2021-10-04] MEDS: DOCUSATE SODIUM 100MG CAPSULE PO SCH ×2 (10:16→20:30)
[2021-10-04] MEDS: PRENATAL VITAMINS CHEWABLE TABLET PO SCH (10:16)
[2021-10-04] MEDS: PERCOCET 5MG/325MG TAB PO PRN (20:30)
[2021-10-05] MEDS: IBUPROFEN 800 MG TAB PO SCH ×2 (01:03→08:38)
[2021-10-05] MEDS: PERCOCET 5MG/325MG TAB PO PRN ×2 (01:53→14:19)
[2021-10-05 02:00] VITALS: BP 137/83
[2021-10-05 03:00] VITALS: BP 131/84
[2021-10-05 06:00] VITALS: BP 121/55
[2021-10-05] MEDS: PRENATAL VITAMINS CHEWABLE TABLET PO SCH (08:38)
[2021-10-05] MEDS: DOCUSATE SODIUM 100MG CAPSULE PO SCH (08:38)
[2021-10-05 10:00] VITALS: BP 121/81
[2021-10-05 14:00] VITALS: BP 127/72
[2021-10-05] MEDS ORDERED: IBUP80TA PO (14:17)
[2021-10-05] MEDS ORDERED: PERCOCET PO (14:17)
== END 2021-10-05 15:45 | disposition home or self-care (01) | DRG 773 ==
LOC: M LDI 07:35 → M OBS 10-04 00:05
PROVIDERS: ADMIT Advanced Practice Midwife; ATTEND Specialist
PROC: 3E033VJ Introduction of Other Hormone into Peripheral Vein, Percutaneous Approach (ICD-10-PCS; 2021-10-03)
PROC: 10D00Z1 Extraction of Products of Conception, Low, Open Approach (ICD-10-PCS; principal; 2021-10-03 22:00)
DX: O48.0 Post-term pregnancy (principal); O34.211 Maternal care for low transverse scar from previous cesarean delivery; Z3A.40 40 weeks gestation of pregnancy; Z37.0 Single live birth; O40.3XX0 Polyhydramnios, third trimester, not applicable or unspecified; O62.0 Primary inadequate contractions; O66.41 Failed attempted vaginal birth after previous cesarean delivery

== ENCOUNTER → 2023-06-11 | Outpatient (CLI) | payer OTHER ==
[~2023-06-11] MED LIST changes: +ETON1VAG7; -NUVAMIS2; +PERCOCET PO
[2023-06-11 17:13] LABS: HIV 1&2 SCREEN NEGATIVE (NEGATIVE)
[2023-06-11 17:21] LABS: HEPATITIS C VIRUS ABY INDEX 0.12 INDEX (<0.8)
[2023-06-11 17:22] LABS: HEPATITIS B CORE ANTIBODY IGM NEGATIVE (NEGATIVE)
== END ==
LOC: M PLALAB 14:42
PROVIDERS: ATTEND Nurse Practitioner Family
DX: Z11.3 Encounter for screening for infections with a predominantly sexual mode of transmission (principal); N73.9 Female pelvic inflammatory disease, unspecified
CPT/HCPCS: 36415; 86705; 86780; 86803; 87070; 87086; 87340; 87389; G0463

== ENCOUNTER → 2023-06-12 | Outpatient (REF) | payer OTHER ==
[2023-06-12 22:07] LABS: GC DNA AMPLIFICATION NEGATIVE (NEGATIVE)
== END ==
LOC: M SFHCWAGY 17:05
PROVIDERS: ATTEND Nurse Practitioner Family
DX: Z11.3 Encounter for screening for infections with a predominantly sexual mode of transmission (principal)

== ENCOUNTER → 2023-10-15 | Outpatient (REF) | payer OTHER | LOC: M SFHCWAGY 15:14 | PROVIDERS: ATTEND Nurse Practitioner Family | DX: N73.9 Female pelvic inflammatory disease, unspecified (principal); Z11.3 Encounter for screening for infections with a predominantly sexual mode of transmission | CPT/HCPCS: 87491; 87591; 87661; 87798; G0463 ==

== ENCOUNTER → 2023-12-01 | Outpatient (REF) | LOC: M EMP 12:42 | PROVIDERS: ATTEND Family Medicine | DX: Z11.52 Encounter for screening for COVID-19 (principal) ==

== ENCOUNTER → 2023-12-30 | Outpatient (REF) | LOC: M EMP 11:14 | PROVIDERS: ATTEND Family Medicine | DX: Z11.52 Encounter for screening for COVID-19 (principal) ==

== ENCOUNTER → 2024-01-19 | Outpatient (CLI) | payer OTHER ==
[2024-01-19 13:35] LABS: BASO # 0.1 10^3/uL (0.0-0.2); BASO % 0.6 % (0.0-1.0); EOS # 0.4 10^3/uL (0.0-0.5); EOS % 4.2 % (0.0-3.0); HEMATOCRIT 44.7 % (36.0-47.0); HEMOGLOBIN 14.4 g/dl (12.0-15.5); LYMPH # 2.1 10^3/uL (1.5-5.0); LYMPH % 25.2 % (24.0-44.0); MEAN CORPUSCULAR HEMOGLOBIN 28.9 pg (27.0-33.0); MEAN CORPUSCULAR HGB CONC 32.2 g/dl (32.0-36.5); MEAN CORPUSCULAR VOLUME 89.6 fl (80.0-96.0); MONO # 0.5 10^3/uL (0.0-0.8); MONO % 5.8 % (2.0-8.0); NEUTROPHILS # 5.4 10^3/uL (1.5-8.5); PLATELET COUNT, AUTOMATED 238 10^3/uL (150-450); RED BLOOD COUNT 4.99 10^6/uL (4.00-5.40); WHITE BLOOD COUNT 8.5 10^3/uL (4.0-10.0)
[2024-01-19 13:49] LABS: HEMOGLOBIN A1c 5.1 % (4.0-6.0)
[2024-01-19 14:02] LABS: ALBUMIN 3.7 G/DL (3.2-5.2); ALKALINE PHOSPHATASE 100 U/L (46-116); ALT/SGPT 12 U/L (7.0-40); AST/SGOT < 8 U/L (<34); BILIRUBIN,TOTAL 0.5 MG/DL (0.3-1.2); BLOOD UREA NITROGEN 9 MG/DL (9-23); CALCIUM LEVEL 9.3 MG/DL (8.5-10.1); CARBON DIOXIDE LEVEL 29 MMOL/L (20-31); CHLORIDE LEVEL 104 MMOL/L (98-107); CHOLESTEROL LEVEL 181 MG/DL (<200); CHOLESTEROL RISK RATIO 4.44 (<5); CREATININE FOR GFR 0.64 MG/DL (0.55-1.30); GLOMERULAR FILTRATION RATE > 60.0 (>60); GLUCOSE, FASTING 99 MG/DL (60-100); HDL CHOLESTEROL 40.7 MG/DL (>40); LDL CHOLESTEROL 111.3 MG/DL (<100); NON-HDL-C 140.3 MG/DL; POTASSIUM SERUM 4.4 MMOL/L (3.5-5.1); SODIUM LEVEL 138 MMOL/L (136-145); TOTAL PROTEIN 6.7 G/DL (5.7-8.2); TRIGLYCERIDES LEVEL 145 MG/DL (<150)
[2024-01-19 14:03] LABS: THYROID STIMULATING HORMONE 2.207 uIU/ML (0.55-4.78)
[2024-01-19 14:04] LABS: FREE T4 1.09 NG/DL (0.89-1.76); TOTAL 25(OH) VITAMIN D 11.3 NG/ML (20.0-100.0)
== END ==
LOC: M LAB 13:06
PROVIDERS: ATTEND Nurse Practitioner Family
DX: Z13.1 Encounter for screening for diabetes mellitus (principal); E78.5 Hyperlipidemia, unspecified; E55.9 Vitamin D deficiency, unspecified; R53.83 Other fatigue

== ENCOUNTER 2024-02-16 18:16 | Emergency (ER) | payer OTHER ==
[~2024-02-16] VITALS: Ht 162.6 cm; Wt 120.8 kg
[2024-02-16 18:16] VITALS: BP 136/96; TEMP 97.1; O2SAT 99
[2024-02-16] MEDS ORDERED: VITA1CAP25 (18:24)
[2024-02-16] MEDS: AMOXICILLIN 500 MG CAP PO ONE (18:54)
[2024-02-16] MEDS ORDERED: AMOX500C PO (18:58)
== END 2024-02-16 19:10 | disposition home or self-care (01) ==
LOC: M ED 18:16
DX: J02.0 Streptococcal pharyngitis (principal); F17.290 Nicotine dependence, other tobacco product, uncomplicated; F10.10 Alcohol abuse, uncomplicated; Z91.040 Latex allergy status; Z79.2 Long term (current) use of antibiotics; Z79.899 Other long term (current) drug therapy

== ENCOUNTER → 2024-12-13 | Outpatient (REF) | payer OTHER ==
[~2024-12-13] MED LIST changes: +AMOX500C PO; +VITA1CAP25
== END ==
LOC: M LAB REF 16:41
PROVIDERS: ATTEND Physician Assistant Medical
DX: B34.9 Viral infection, unspecified (principal)

== ENCOUNTER 2025-08-18 08:23 | Emergency (ER) | payer OTHER ==
[~2025-08-18] VITALS: Ht 162.6 cm; Wt 128.6 kg
[~2025-08-18 08:23] MED LIST changes: -IBUP-1022 PO; +IBUP600T42 PO
[2025-08-18 09:06] LABS: BASO # 0.1 10^3/uL (0.0-0.2); BASO % 0.9 % (0.0-1.0); EOS # 0.3 10^3/uL (0.0-0.5); EOS % 3.9 % (0.0-3.0); LYMPH # 2.1 10^3/uL (1.5-5.0); LYMPH % 31.9 % (24.0-44.0); MONO # 0.4 10^3/uL (0.0-0.8); MONO % 6.0 % (2.0-8.0); NEUTROPHILS # 3.8 10^3/uL (1.5-8.5); NEUTROPHILS % 57.0 % (36.0-66.0); PLATELET COUNT, AUTOMATED 254 10^3/uL (150-450)
[2025-08-18 09:11] LABS: KETONE, URINE AUTO RFX NEGATIVE (NEGATIVE); LEUKOCYTE ESTERASE UR AUTO RFX NEGATIVE (NEGATIVE); MUCUS, URINE RFX MODERATE (NEGATIVE); NITRITE, URINE AUTO RFX NEGATIVE (NEGATIVE); RBC, URINE AUTO RFX 7 /HPF (0-3); SQUAM EPITHELIAL CELL UR AURFX 6 /HPF (0-6); WBC, URINE AUTO RFX 1 /HPF (0-3)
[2025-08-18 09:35] LABS: CALCIUM LEVEL 8.6 MG/DL (8.5-10.1); CARBON DIOXIDE LEVEL 25 MMOL/L (20-31); CHLORIDE LEVEL 104 MMOL/L (98-107); CREATININE FOR GFR 0.64 MG/DL (0.55-1.30); GLOMERULAR FILTRATION RATE > 90.0 (>60); HCG, SERUM QUANTITATIVE 238.3 MIU/ML (<4.2); POTASSIUM SERUM 3.7 MMOL/L (3.5-5.1); SODIUM LEVEL 138 MMOL/L (136-145)
[2025-08-18 10:16] VITALS: BP 132/79; TEMP 97.8; O2SAT 98
== END 2025-08-18 10:34 | disposition home or self-care (01) ==
LOC: M ED 08:23
DX: O20.9 Hemorrhage in early pregnancy, unspecified (principal); Z91.040 Latex allergy status; Z3A.01 Less than 8 weeks gestation of pregnancy

== ENCOUNTER → 2025-08-20 | Outpatient (CLI) | payer OTHER | LOC: M LAB 12:45 | PROVIDERS: ATTEND Physician Assistant | DX: O26.91 Pregnancy related conditions, unspecified, first trimester (principal) ==

== ENCOUNTER 2025-08-25 08:16 | Emergency (ER) | payer OTHER ==
[~2025-08-25] VITALS: Ht 162.6 cm; Wt 129.0 kg
[2025-08-25] MEDS: KETOROLAC 30 MG/ML 1 ML VIAL IV ONE (08:46)
[2025-08-25] MEDS: ONDANSETRON 4MG/2ML VIAL IV ONE (08:46)
[2025-08-25 08:48] LABS: BASO # 0.1 10^3/uL (0.0-0.2); BASO % 0.6 % (0.0-1.0); EOS # 0.4 10^3/uL (0.0-0.5); EOS % 3.6 % (0.0-3.0); LYMPH # 3.6 10^3/uL (1.5-5.0); LYMPH % 37.2 % (24.0-44.0); MONO # 0.6 10^3/uL (0.0-0.8); MONO % 5.8 % (2.0-8.0); NEUTROPHILS # 5.1 10^3/uL (1.5-8.5); NEUTROPHILS % 52.6 % (36.0-66.0); PLATELET COUNT, AUTOMATED 268 10^3/uL (150-450)
[2025-08-25 09:25] LABS: ALT/SGPT 18 U/L (7.0-40); AST/SGOT 17 U/L (<34); CALCIUM LEVEL 9.0 MG/DL (8.5-10.1); CARBON DIOXIDE LEVEL 24 MMOL/L (20-31); CHLORIDE LEVEL 105 MMOL/L (98-107); CREATININE FOR GFR 0.74 MG/DL (0.55-1.30); GLOMERULAR FILTRATION RATE > 90.0 (>60); POTASSIUM SERUM 3.4 MMOL/L (3.5-5.1); SODIUM LEVEL 141 MMOL/L (136-145)
[2025-08-25 11:23] LABS: KETONE, URINE AUTO RFX NEGATIVE (NEGATIVE); LEUKOCYTE ESTERASE UR AUTO RFX NEGATIVE (NEGATIVE); MUCUS, URINE RFX LARGE (NEGATIVE); NITRITE, URINE AUTO RFX NEGATIVE (NEGATIVE); RBC, URINE AUTO RFX TNTC /HPF (0-3); SQUAM EPITHELIAL CELL UR AURFX 5 /HPF (0-6); WBC, URINE AUTO RFX 0 /HPF (0-3)
[2025-08-25] MEDS ORDERED: ONDA-282 PO (12:35)
[2025-08-25] MEDS ORDERED: OXYC1TAB23 PO (12:35)
[2025-08-25] MEDS ORDERED: TAMS-18 PO (12:35)
[2025-08-25 12:42] VITALS: BP 120/92; TEMP 98.3; O2SAT 96
== END 2025-08-25 12:57 | disposition home or self-care (01) ==
LOC: EDBD 08:16 → M ED 08:16
DX: N20.1 Calculus of ureter (principal); Z91.040 Latex allergy status; Z79.899 Other long term (current) drug therapy
CPT/HCPCS: 74176; 80053; 81001; 85025; 96374; 99284; J1885; J2405